=== PATIENT | male | born 1985 | race Caucasian/White ===

== ENCOUNTER 2017-05-14 22:30 | Inpatient (IN) | payer BC ==
--- NOTE | 2017-05-14 23:37 | PDOC ---
History of Present Illness - General Chief Complaint: Pain Stated Complaint: CHEST PAIN Time Seen by Provider: 05/14/17 23:37 History Source: Patient - History of Present Illness Travel History: No Initial Comments: 05/14/17 23:39 Best Contact: Pmhx: N/A Pshx:N/A Allergies: NKDA 32-year-old male presents to the emergency department complaining of right lower quadrant abdominal pains 2 hours after eating take out. Pain is described as 10/10 sharp constant nonradiating discomfort with nausea but no vomiting. Patient denies fever, chills, headaches, dizziness, lightheadedness, neck/back pains, chest pain, shortness of breath, flank pains, urinary symptoms. Pain is exacerbated on touch and there are no alleviating factors. LAST MEAL X17 HOURS LAST DRINK/WATER AT 2200HRS 05/14/2017 Past History - Past Medical History Allergies/Adverse Reactions: Allergies Allergy/AdvReac Type Severity Reaction Status Date / Time No Known Allergies Allergy Verified 05/15/17 09:52 Home Medications: Ambulatory Orders Docusate Sodium [Colace -] 100 mg PO TID #90 capsule 05/15/17 Multivitamin [Multiple Vitamins] 1 each PO DAILY 05/15/17 [place]-3/Dha/Epa/Fish Oil [[place] 3 500 Softgel] 1 each PO DAILY 05/15/17 Oxycodone HCl/Acetaminophen [Percocet 5-325 mg Tablet] 1 - 2 tab PO Q6H #28 tab MDD 4 05/15/17 levoFLOXacin [Levaquin -] 500 mg PO DAILY #10 tablet 05/16/17 metroNIDAZOLE [Flagyl -] 500 mg PO TID #30 tablet 05/16/17 - Suicide/Smoking/Psychosocial Hx Smoking History: Current some day smoker Have you smoked in the past 12 months: Yes Information on smoking cessation initiated: No Hx Alcohol Use: Yes (social) Drug/Substance Use Hx: No Review of Systems - Review of Systems Able to Perform ROS?: Yes Comments:: 05/15/17 01:33 CONSTITUTIONAL: Absent: fever, chills, diaphoresis, generalized weakness, malaise, loss of appetite HEENT: Absent: rhinorrhea, nasal congestion, throat pain, throat swelling, difficulty swallowing, mouth swelling, ear pain, eye pain, visual Changes CARDIOVASCULAR: Absent: chest pain, loss of consciousness, palpitations, irregular heart rate, peripheral edema RESPIRATORY: Absent: cough, shortness of breath, dyspnea with exertion, orthopnea, wheezing, stridor, hemoptysis GASTROINTESTINAL: +RLQ pain Absent: abdominal distension, nausea, vomiting, diarrhea, constipation, melena, hematochezia GENITOURINARY: Absent: dysuria, frequency, urgency, hesitancy, hematuria, flank pain, genital pain MUSCULOSKELETAL: Absent: myalgia, arthralgia, joint swelling SKIN: Absent: rash, itching, pallor HEMATOLOGIC/IMMUNOLOGIC: Absent: easy bleeding, easy bruising, lymphadenopathy, frequent infections ENDOCRINE: Absent: unexplained weight gain, unexplained weight loss, heat intolerance, cold intolerance NEUROLOGIC: Absent: headache, focal weakness or paresthesias, dizziness, unsteady gait, seizure, mental status changes, bladder or bowel incontinence PSYCHIATRIC: Absent: anxiety, depression, suicidal or homicidal ideation, hallucinations. Is the patient limited Italian proficient: No *Physical Exam - Vital Signs Last Vital Signs Temp Pulse Resp BP Pulse Ox 83 18 134/90 100 05/14/17 22:45 05/14/17 22:45 05/14/17 22:45 05/14/17 22:45 - Physical Exam Comments: 05/15/17 01:34 GENERAL: Well developed, well nourished. Awake and alert. No acute distress. HEENT: Normocephalic, atraumatic. PERRLA, EOMI. No conjunctival pallor. Sclera are non- icteric. Moist mucous membranes. Oropharynx is clear. NECK: Supple. Full ROM. No JVD. Carotid pulses 2+ and symmetric, without bruits. No thyromegaly. No lymphadenopathy. CARDIOVASCULAR: Regular rate and rhythm. No murmurs, rubs, or gallops. Distal pulses are 2+ and symmetric. PULMONARY: No evidence of respiratory distress. Lungs clear to auscultation bilaterally. No wheezing, rales or rhonchi. ABDOMINAL: +RLQ pain on palp Soft.Non-distended. No rebound or guarding. No organomegaly. Normoactive bowel sounds. MUSCULOSKELETAL Normal range of motion at all joints. No bony deformities or tenderness. No CVA tenderness. EXTREMITIES: No cyanosis. No clubbing. No edema. No calf tenderness. SKIN: Warm and dry. Normal capillary refill. No rashes. No jaundice. NEUROLOGICAL: Alert, awake, appropriate. Cranial nerves 2-12 intact. No deficits to light touch and temperature in face, upper extremities and lower extremities. No motor deficits in the in face, upper extremities and lower extremities. Normoreflexic in the upper and lower extremities. Normal speech. Toes are down- going bilaterally. Gait is normal without ataxia. PSYCHIATRIC: Cooperative. Good eye contact. Appropriate mood and affect. ED Treatment Course - LABORATORY CBC & Chemistry Diagram: 05/16/17 07:05 05/16/17 07:05 Progress Note - Progress Note Progress Note: Signed out to Dr. Rush for surgical consult *DC/Admit/Observation/Transfer Diagnosis at time of Disposition: Appendicitis - Discharge Dispostion Disposition: HOME Condition at time of disposition: Stable - Prescriptions - Referrals - Patient Instructions - Post Discharge Activity
[2017-05-14] MEDS ORDERED: ONDANSETRON 4 MG/2 ML VIAL IVPUSH ONE (23:38)
[2017-05-14] MEDS ORDERED: morphine SULFATE 4 MG/ML VIAL IVPUSH ONE (23:38)
[2017-05-14] MEDS ORDERED: morphine SULFATE 4 MG/ML VIAL ONE (23:40)
[2017-05-15] MEDS ORDERED: morphine CARPU-JECT 2 MG/1 ML DISP.SYRIN IVPUSH ONE ×3 (00:21→04:33)
[2017-05-15] MEDS ORDERED: MORPHINE SULFATE 10 MG/1 ML *VIAL ONE ×3 (00:25→12:38)
[2017-05-15 00:39] LABS: ALBUMIN 4.9 g/dl (3.4-5.0); ALK PHOS 126 U/L (45-117); ANION GAP 10 (8-16); BILIRUBIN,TOTAL 0.8 mg/dL (0.2-1.0); BLOOD UREA NITROGEN 15 mg/dL (7-18); CALCIUM 9.8 mg/dL (8.5-10.1); CHLORIDE 102 mmol/L (98-107); CO2 29 mmol/L (21-32); CREATININE 1.3 mg/dL (0.7-1.3); GLUCOSE,RANDOM 129 mg/dL (74-106); POTASSIUM 3.4 mmol/L (3.5-5.1); SGOT/AST 33 U/L (15-37); SGPT/ALT 47 U/L (12-78); SODIUM 141 mmol/L (136-145); TOT PROT 8.5 g/dl (6.4-8.2)
[2017-05-15 01:10] LABS: BASO % 0.2 % (0-2.0); EOS % 0.2 % (0-4.5); HEMATOCRIT 46.4 % (35.4-49); HEMOGLOBIN 16.5 GM/dL (11.7-16.9); LYMPH % 6.8 % (8-40); MCH 32.7 pg (25.7-33.7); MCHC 35.5 g/dl (32.0-35.9); NEUT % 87.8 % (42.8-82.8); PLATELET COUNT 278 K/MM3 (134-434); RBC 5.04 M/mm3 (4.00-5.60); RDW 12.6 % (11.9-15.9); WHITE BLOOD COUNT 12.7 K/mm3 (4.0-10.0)
[2017-05-15] MEDS ORDERED: HYDROmorphone HCL CARPU-JECT 1 MG/1 ML DISP.SYRIN IVPUSH ONE (01:51)
[2017-05-15] MEDS ORDERED: CEFTRIAXONE 1,000 MG in DEXTROSE 5%-WATER - 50 ML IVPB ONE (01:53)
[2017-05-15] MEDS ORDERED: METOCLOPRAMIDE HCL INJECTION 10 MG/2 ML VIAL IVPUSH ONE (01:55)
[2017-05-15] MEDS ORDERED: CEFTRIAXONE 1 GM/50 ML BAG ONE (01:59)
[2017-05-15] MEDS ORDERED: METOCLOPRAMIDE HCL INJECTION 10 MG/2 ML VIAL ONE (01:59)
[2017-05-15 04:24] LABS: URINE APPEARANCE CLEAR; URINE BILIRUBIN NEGATIVE (<2.0 mg/dL); URINE BLOOD NEGATIVE (NEGATIVE); URINE COLOR LTYELLOW; URINE GLUCOSE (UA) 1+ (NEGATIVE); URINE KETONE 2+ (NEGATIVE); URINE LEUK ESTERASE NEGATIVE (NEGATIVE); URINE NITRITE NEGATIVE (NEGATIVE); URINE PROTEIN NEGATIVE (NEGATIVE); URINE UROBILINOGEN NEGATIVE mg/dL (0.2-1.0)
[2017-05-15] MEDS ORDERED: morphine SULFATE 4 MG/ML VIAL ONE ×2 (04:36→06:10)
[2017-05-15] MEDS ORDERED: ONDANSETRON 4 MG/2 ML VIAL IVPUSH ONE (05:55)
[2017-05-15] MEDS ORDERED: ONDANSETRON 4 MG/2 ML VIAL ONE (06:04)
[2017-05-15] MEDS ORDERED: morphine CARPU-JECT 4 MG/1 ML DISP.SYRIN IVPUSH ONE (06:08)
[2017-05-15] MEDS: LACTATED RINGERS SOLUTION 1,000 ML IV SCH ×2 (06:56→16:30)
--- NOTE | 2017-05-15 07:12 | PDOC ---
*Physical Exam - Vital Signs Last Vital Signs Temp Pulse Resp BP Pulse Ox 66 18 124/69 98 05/15/17 07:06 05/15/17 07:06 05/15/17 07:06 05/15/17 07:06 - Physical Exam Comments: 05/15/17 07:19 Gen: Sleeping in bed, arousable spontaneously Lungs: CTA b/l Cardiac: RRR no murmurs appreciated Abd: Soft, mild tenderness in LLQ, nondistended, + BS, no rebound, voluntary guarding Ext: No edema, 2+ DP pulses ED Treatment Course - LABORATORY CBC & Chemistry Diagram: 05/14/17 23:50 05/14/17 23:50 - ADDITIONAL ORDERS Additional order review: Laboratory Results 05/15/17 05/14/17 04:30 23:50 Sodium 141 Potassium 3.4 L Chloride 102 Carbon Dioxide 29 Anion Gap 10 BUN 15 Creatinine 1.3 Creat Clearance w eGFR > 60 Random Glucose 129 H Calcium 9.8 Total Bilirubin 0.8 AST 33 ALT 47 Alkaline Phosphatase 126 H Total Protein 8.5 H Albumin 4.9 Urine Color Ltyellow Urine Appearance Clear Urine pH 7.0 Ur Specific [place] > 1.060 H Urine Protein Negative Urine Glucose (UA) 1+ H Urine Ketones 2+ H Urine Blood Negative Urine Nitrite Negative Urine Bilirubin Negative Urine Urobilinogen Negative Ur Leukocyte Esterase Negative 05/14/17 23:50 RBC 5.04 MCV 92.0 MCHC 35.5 RDW 12.6 MPV 8.0 Neutrophils % 87.8 H Lymphocytes % 6.8 L Monocytes % 5.0 Eosinophils % 0.2 Basophils % 0.2 - Medications Given in the ED: ED Medications Discontinued Medications Generic Name Dose Route Start Last Admin Trade Name Lizbeth PRN Reason Stop Dose Admin Hydromorphone HCl 1 mg 05/15/17 01:51 05/15/17 02:13 Dilaudid Injection - IVPUSH 05/15/17 01:52 Not Given ONCE ONE Ceftriaxone Sodium 1,000 mg/ 50 mls @ 100 mls/hr 05/15/17 01:53 05/15/17 02: 11 Dextrose IVPB 05/15/17 02:22 100 mls/hr ONCE ONE Administration Metronidazole 500 mg in 100 mls @ 100 mls/hr 05/15/17 01:54 05/15/17 02:11 Flagyl 500mg Premixed Ivpb - IVPB 05/15/17 02:53 100 mls/hr ONCE ONE Administration Metoclopramide HCl 10 mg 05/15/17 01:55 05/15/17 02:12 Reglan Injection - IVPUSH 05/15/17 01:56 10 mg ONCE ONE Administration Morphine Sulfate 2 mg 05/14/17 23:38 05/14/17 23:55 Morphine Sulfate IVPUSH 05/14/17 23:39 2 mg ONCE ONE Administration Morphine Sulfate 2 mg 05/15/17 00:21 05/15/17 00:27 Morphine Injection - IVPUSH 05/15/17 00:22 2 mg ONCE ONE Administration Morphine Sulfate 2 mg 05/15/17 01:55 05/15/17 02:11 Morphine Injection - IVPUSH 05/15/17 01:56 2 mg ONCE ONE Administration Morphine Sulfate 2 mg 05/15/17 04:33 05/15/17 04:39 Morphine Injection - IVPUSH 05/15/17 04:34 2 mg ONCE ONE Administration Morphine Sulfate 4 mg 05/15/17 06:08 05/15/17 06:19 Morphine Injection - IVPUSH 05/15/17 06:09 4 mg ONCE ONE Administration Ondansetron HCl 4 mg 05/14/17 23:38 05/14/17 23:55 Zofran Injection IVPUSH 05/14/17 23:39 4 mg ONCE ONE Administration Ondansetron HCl 4 mg 05/15/17 05:55 05/15/17 06:09 Zofran Injection IVPUSH 05/15/17 05:56 4 mg ONCE ONE Administration Progress Note - Progress Note Progress Note: 32yo M with no significant medical history who came in with abdominal pain rated 10/10 found to have early appendicitis confirmed by CT. Awaiting call back from [facility] and pt already admitted. Medical Decision Making - Medical Decision Making 05/15/17 07:49 Dr. Clayton at bedside. Admitting team at bedside. Pt continues to be pain controlled. *DC/Admit/Observation/Transfer Diagnosis at time of Disposition: Appendicitis - Referrals - Patient Instructions - Post Discharge Activity
--- NOTE | 2017-05-15 07:22 | PDOC ---
*Physical Exam - Vital Signs Last Vital Signs Temp Pulse Resp BP Pulse Ox 66 18 124/69 98 05/15/17 07:06 05/15/17 07:06 05/15/17 07:06 05/15/17 07:06 ED Treatment Course - LABORATORY CBC & Chemistry Diagram: 05/14/17 23:50 05/14/17 23:50 - ADDITIONAL ORDERS Additional order review: Laboratory Results 05/15/17 05/14/17 04:30 23:50 Sodium 141 Potassium 3.4 L Chloride 102 Carbon Dioxide 29 Anion Gap 10 BUN 15 Creatinine 1.3 Creat Clearance w eGFR > 60 Random Glucose 129 H Calcium 9.8 Total Bilirubin 0.8 AST 33 ALT 47 Alkaline Phosphatase 126 H Total Protein 8.5 H Albumin 4.9 Urine Color Ltyellow Urine Appearance Clear Urine pH 7.0 Ur Specific [place] > 1.060 H Urine Protein Negative Urine Glucose (UA) 1+ H Urine Ketones 2+ H Urine Blood Negative Urine Nitrite Negative Urine Bilirubin Negative Urine Urobilinogen Negative Ur Leukocyte Esterase Negative 05/14/17 23:50 RBC 5.04 MCV 92.0 MCHC 35.5 RDW 12.6 MPV 8.0 Neutrophils % 87.8 H Lymphocytes % 6.8 L Monocytes % 5.0 Eosinophils % 0.2 Basophils % 0.2 - Medications Given in the ED: ED Medications Discontinued Medications Generic Name Dose Route Start Last Admin Trade Name Joseq PRN Reason Stop Dose Admin Hydromorphone HCl 1 mg 05/15/17 01:51 05/15/17 02:13 Dilaudid Injection - IVPUSH 05/15/17 01:52 Not Given ONCE ONE Ceftriaxone Sodium 1,000 mg/ 50 mls @ 100 mls/hr 05/15/17 01:53 05/15/17 02: 11 Dextrose IVPB 05/15/17 02:22 100 mls/hr ONCE ONE Administration Metronidazole 500 mg in 100 mls @ 100 mls/hr 05/15/17 01:54 05/15/17 02:11 Flagyl 500mg Premixed Ivpb - IVPB 05/15/17 02:53 100 mls/hr ONCE ONE Administration Metoclopramide HCl 10 mg 05/15/17 01:55 05/15/17 02:12 Reglan Injection - IVPUSH 05/15/17 01:56 10 mg ONCE ONE Administration Morphine Sulfate 2 mg 05/14/17 23:38 05/14/17 23:55 Morphine Sulfate IVPUSH 05/14/17 23:39 2 mg ONCE ONE Administration Morphine Sulfate 2 mg 05/15/17 00:21 05/15/17 00:27 Morphine Injection - IVPUSH 05/15/17 00:22 2 mg ONCE ONE Administration Morphine Sulfate 2 mg 05/15/17 01:55 05/15/17 02:11 Morphine Injection - IVPUSH 05/15/17 01:56 2 mg ONCE ONE Administration Morphine Sulfate 2 mg 05/15/17 04:33 05/15/17 04:39 Morphine Injection - IVPUSH 05/15/17 04:34 2 mg ONCE ONE Administration Morphine Sulfate 4 mg 05/15/17 06:08 05/15/17 06:19 Morphine Injection - IVPUSH 05/15/17 06:09 4 mg ONCE ONE Administration Ondansetron HCl 4 mg 05/14/17 23:38 05/14/17 23:55 Zofran Injection IVPUSH 05/14/17 23:39 4 mg ONCE ONE Administration Ondansetron HCl 4 mg 05/15/17 05:55 05/15/17 06:09 Zofran Injection IVPUSH 05/15/17 05:56 4 mg ONCE ONE Administration Medical Decision Making - Medical Decision Making 05/15/17 07:[address] Clayton, surgeon around 6:30am who will review chart and call back. Signed out to Dr. Grace *DC/Admit/Observation/Transfer Diagnosis at time of Disposition: Appendicitis - Referrals - Patient Instructions - Post Discharge Activity
--- NOTE | 2017-05-15 07:56 | HP ---
<Michelle Galarza - Last Filed: 05/16/17 10:06> CHIEF COMPLAINT: " Right lower abdominal pain" PCP: Dr. Larry Ramirez HISTORY OF PRESENT ILLNESS: Patient is a 32 year old male presented to the ED with the chief complaint of Right lower abdominal pain x 1 day. As per the patient, he was apparently well until 2 pm yesterday then he suddenly developed RLQ abdominal pain, progressively getting worse to 10/10, non radiating, sharp in quality, associated with chills, nausea and several episodes of vomiting. Vomitus mainly contained food particles, non bloody, non projectile. Denies fever, rigors chest pain, sob, cough, palpitation, headache, LOC, trauma. Bladder/Bowel habit normal. Sleep/Appetite normal prior to illness. Was seen by Dr. Clayton in the ED, plan is to take the patient in the OR today ( time unknown) for Lap Appendectomy. ER course was notable for: (1) Afebrile, hemodynamically stable, leukocytosis of 12.7 (2) CT abdomen/Pelvis (3) IV Ceftriaxone, IV Metron, Reglan, Zofran, Morphine 12 mg total. 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 Family History: Non contributory Allergies No Known Allergies Allergy (Verified 05/14/17 23:52) HOME MEDICATIONS: Home Medications Medication Instructions Recorded NK [No Known Home Medication] 05/15/17 REVIEW OF SYSTEMS CONSTITUTIONAL: Present: chills Absent: fever, diaphoresis, generalized weakness, malaise, loss of appetite, weight change HEENT: Absent: rhinorrhea, nasal congestion, throat pain, throat swelling, difficulty swallowing, mouth swelling, ear pain, eye pain, visual changes CARDIOVASCULAR: Absent: chest pain, syncope, palpitations, irregular heart rate, lightheadedness , peripheral edema RESPIRATORY: Absent: cough, shortness of breath, dyspnea with exertion, orthopnea, wheezing, stridor, hemoptysis GASTROINTESTINAL: Present: nausea, vomiting, abdominal pain Absent: abdominal distension, diarrhea, constipation, melena, hematochezia GENITOURINARY: Absent: dysuria, frequency, urgency, hesitancy, hematuria, flank pain, genital pain MUSCULOSKELETAL: Absent: myalgia, arthralgia, joint swelling, back pain, neck pain SKIN: Absent: rash, itching, pallor HEMATOLOGIC/IMMUNOLOGIC: Absent: easy bleeding, easy bruising, lymphadenopathy, frequent infections ENDOCRINE: Absent: unexplained weight gain, unexplained weight loss, heat intolerance, cold intolerance NEUROLOGIC: Absent: headache, focal weakness or paresthesias, dizziness, unsteady gait, seizure, mental status changes, bladder or bowel incontinence PSYCHIATRIC: Absent: anxiety, depression, suicidal or homicidal ideation, hallucinations. PHYSICAL EXAMINATION Vital Signs - 24 hr 05/14/17 05/15/17 05/15/17 22:45 06:28 07:06 Pulse Rate 83 Pulse Rate [ 79 66 Left] Respiratory 18 18 18 Rate Blood Pressure 134/90 Blood Pressure 128/88 124/69 [Right Arm] O2 Sat by Pulse 100 100 98 Oximetry (%) GENERAL: Young male, complaining of right abdominal pain, Awake, alert, and fully oriented, in no acute distress. HEAD: Normal with no signs of trauma. EYES: EOM intact, no pallor or icterus. EARS, NOSE, THROAT: Ears normal, Dry mucous membranes. NECK: Supple. LUNGS: B/L breath sounds equal, clear to auscultation bilaterally. No wheezes, and no crackles. No accessory muscle use. HEART: Regular rate and rhythm, normal S1 and S2 without murmur. ABDOMEN: Soft, Right lower quadrant tenderness +, Rebound tenderness +, Rovsing sign +, Obturator sign + Psoas sign +, not distended, normoactive bowel sounds. MUSCULOSKELETAL: Normal range of motion at all joints. No bony deformities or tenderness. No CVA tenderness. UPPER EXTREMITIES: 2+ pulses, warm, well-perfused. No cyanosis. No clubbing. No peripheral edema. LOWER EXTREMITIES: 2+ pulses, warm, well-perfused. No calf tenderness. No peripheral edema. NEUROLOGICAL: No facial droop. Normal speech. Gait not observed. PSYCHIATRIC: Cooperative. Good eye contact. Appropriate mood and affect. SKIN: Warm, dry, normal turgor, no rashes or lesions noted, normal capillary refill. Laboratory Results - last 24 hr 05/14/17 05/14/17 05/15/17 23:50 23:50 04:30 WBC 12.7 H RBC 5.04 Hgb 16.5 Hct 46.4 MCV 92.0 MCH 32.7 MCHC 35.5 RDW 12.6 Plt Count 278 MPV 8.0 Neutrophils % 87.8 H Lymphocytes % 6.8 L Monocytes % 5.0 Eosinophils % 0.2 Basophils % 0.2 Sodium 141 Potassium 3.4 L Chloride 102 Carbon Dioxide 29 Anion Gap 10 BUN 15 Creatinine 1.3 Creat Clearance w eGFR > 60 Random Glucose 129 H Calcium 9.8 Total Bilirubin 0.8 AST 33 ALT 47 Alkaline Phosphatase 126 H Total Protein 8.5 H Albumin 4.9 Urine Color Ltyellow Urine Appearance Clear Urine pH 7.0 Ur Specific [place] > 1.060 H Urine Protein Negative Urine Glucose (UA) 1+ H Urine Ketones 2+ H Urine Blood Negative Urine Nitrite Negative Urine Bilirubin Negative Urine Urobilinogen Negative Ur Leukocyte Esterase Negative Abdominal/Pelvis CT with contrast: Findings strongly suspicious for acute appendicitis without abscess formation. ASSESSMENT/PLAN: Patient is a 32 year old male presented to the ED with the chief complaint of Right lower abdominal pain x 1 day was found to have Acute appendicitis on CT abd/Pelvis. # Acute Appendicitis c/o RLQ abdominal pain, Nausea, vomiting, Rebound tenderness +, Rovsing sign +, obturator sign + Khoury score 8 CT abd/pelvis suggestive of acute appendicitis Dr. Clayton saw the pt in the ED, plan for a lap appendectomy today IV LR @ 100 mls/hr IV Zosyn 3.375mg one time dose given. ID consult requested IV Morphine 2mg Q4H PRN for pain control IV Reglan 10mg Q8H PRN for nausea/vomiting NPO Type and screen, coags pending. # Polysubstance abuse urine tox positive for Cocaine, Marijuana, Opiates (Urine sample was taken after he received Morphine in the ED) Polysubstance cessation counseling # Glycousria RBS-126, Glycosuria A1c pending # FEN IV LR @ 100 mls/hr Electrolytes WNL NPO # Prophylaxis For DVT: On SCD's For GI: Not indicated # Code Status: Full Code Illness, Investigation and Plan of care explained to the patient. He verbalized understanding. Case to be discussed with Dr. Ewing. Visit type - Emergency Visit Emergency Visit: Yes ED Registration Date: 05/15/17 Care time: The patient presented to the Emergency Department on the above date and was hospitalized for further evaluation of their emergent condition. - New Patient This patient is new to me today: Yes Date on this admission: 05/15/17 - Critical Care Critical Care patient: No Hospitalist Screening - Colonoscopy Questionnaire Colonoscopy Questionnaire: Colonoscopy Questionnaire - Patient: 50 - 75 years old and never had a screening colonoscopy: No - Relative: 1 with colon or rectal CA, or polyps at age 60 or younger: Unknown Colon or rectal CA diagnosed at age 45 or younger: Unknown Multiple relatives with colon or rectal CA: Unknown <Carrie Ewing - Last Filed: 05/17/17 16:51> Problem List - Problem (1) Appendicitis Code(s): K37 - UNSPECIFIED APPENDICITIS Qualifiers: Appendicitis type: acute appendicitis Hospitalist Screening - Colonoscopy Questionnaire Colonoscopy Questionnaire: Colonoscopy Questionnaire - Patient: 50 - 75 years old and never had a screening colonoscopy: No History of colon or rectal polyps, or CA: No History of IBD, Crohn's disease or UC: No History of abdominal radiation therapy as a child: No - Relative: 1 with colon or rectal CA, or polyps at age 60 or younger: Unknown Colon or rectal CA diagnosed at age 45 or younger: Unknown Multiple relatives with colon or rectal CA: Unknown - Outcome: Screening Result: Negative Screen
[2017-05-15] MEDS ORDERED: METOCLOPRAMIDE HCL INJECTION 10 MG/2 ML VIAL IVPUSH PRN (08:29)
[2017-05-15] MEDS ORDERED: PIPERACIL/TAZOB 3.375 GM 3.375 GM/50 ML PREMIX IVPB ONE (08:30)
[2017-05-15] MEDS ORDERED: morphine SULFATE 4 MG/ML VIAL IVPUSH PRN ×2 (08:30→19:20)
--- NOTE | 2017-05-15 08:47 | CONSULT ---
Consult Consult Specialty:: Surgery Reason for Consultation:: Abdominal pain - History of Present Illness Chief Complaint: Abdominal pain History of Present Illness: 32 male with 1 day of RLQ abdominal pain 1st episode Mild nausea No vomiting - History Source History Provided By: Patient Limitations to Obtaining History: No Limitations - Alcohol/Substance Use Hx Alcohol Use: Yes (social) - Smoking History Smoking history: Current some day smoker Have you smoked in the past 12 months: Yes Home Medications - Allergies Allergies/Adverse Reactions: Allergies Allergy/AdvReac Type Severity Reaction Status Date / Time No Known Allergies Allergy Verified 05/14/17 23:52 - Home Medications Home Medications: Ambulatory Orders NK [No Known Home Medication] 05/15/17 Family Disease History - Family Disease History Family History: Denies Review of Systems - Review of Systems Constitutional: reports: Lethargy HENT: reports: No Symptoms Cardiovascular: denies: Chest Pain Respiratory: denies: Cough Gastrointestinal: reports: Abdominal Pain, Nausea Neurological: denies: Change in LOC Pain Intensity: 5 Physical Exam Vital Signs: Vital Signs Temperature Pulse Rate 66 05/15/17 07:06 Respiratory Rate 18 05/15/17 07:06 Blood Pressure 124/69 05/15/17 07:06 O2 Sat by Pulse Oximetry (%) 98 05/15/17 07:06 HENT: Yes: WNL Neck: Yes: Supple Cardiovascular: Yes: Regular Rate and Rhythm Respiratory: Yes: Regular Gastrointestinal: Yes: Soft, Tenderness (RLQ), Tenderness, Rebound (Local) Neurological: Yes: Alert, Oriented Labs: CBC, BMP 05/14/17 23:50 05/14/17 23:50 Problem List - Problems (1) Appendicitis Code(s): K37 - UNSPECIFIED APPENDICITIS Qualifiers: Appendicitis type: acute appendicitis Acute appendicitis type: with localized peritonitis Qualified Code(s): K35.3 - Acute appendicitis with localized peritonitis Assessment/Plan Acute appendicitis NPO IV fluids Antibiotics For laparoscopic possible open appendectomy Understands risks and benefits
[2017-05-15 09:33] LABS: HEMOGLOBIN 15.5 GM/dL (11.7-16.9); MCH 32.4 pg (25.7-33.7); MCHC 35.3 g/dl (32.0-35.9); MEAN CELL VOLUME 91.8 fl (80-96); MEAN PLT VOLUME 7.8 fl (7.5-11.1); PLATELET COUNT 232 K/MM3 (134-434); RDW 12.7 % (11.9-15.9); WHITE BLOOD COUNT 15.1 K/mm3 (4.0-10.0)
[2017-05-15 09:42] VITALS: BMI 27.2
[2017-05-15 09:53] LABS: INR 1.04 (0.82-1.09); PROTHROMBIN TIME (PATIENT) 11.8 SEC (9.98-11.88)
[2017-05-15 09:56] LABS: ACTIVATED PTT 30.4 SECONDS (26.9-34.4)
[2017-05-15 10:11] LABS: ANION GAP 12 (8-16); BLOOD UREA NITROGEN 10 mg/dL (7-18); CALCIUM 9.3 mg/dL (8.5-10.1); CHLORIDE 99 mmol/L (98-107); CO2 29 mmol/L (21-32); CREATININE 1.1 mg/dL (0.7-1.3); GLUCOSE,RANDOM 113 mg/dL (74-106); POTASSIUM 3.4 mmol/L (3.5-5.1); SODIUM 140 mmol/L (136-145)
[2017-05-15 11:06] LABS: METHADONE, UR NEGATIVE ng/ml (CUTOFF=300); PHENCYCLIDINE,URINE NEGATIVE ng/ml (CUTOFF=25); URINE AMPHETAMINES NEGATIVE ng/ml (CUTOFF=500); URINE BARBITURATES NEGATIVE ng/ml (CUTOFF=200); URINE BENZODIAZEPINES NEGATIVE ng/ml (CUTOFF=200)
[2017-05-15 11:17] LABS: COCAINE, UR POSITIVE ng/ml (CUTOFF=300)
[2017-05-15 11:18] LABS: OPIATES, URI POSITIVE ng/ml (CUTOFF=300)
--- NOTE | 2017-05-15 13:35 | EKG ---
Test Reason : Blood Pressure : / mmHG Vent. Rate : 091 BPM Atrial Rate : 091 BPM P-R Int : 182 ms QRS Dur : 110 ms QT Int : 350 ms P-R-T Axes : 063 105 043 degrees QTc Int : 430 ms NORMAL SINUS RHYTHM POSSIBLE LEFT ATRIAL ENLARGEMENT RIGHTWARD AXIS INCOMPLETE RIGHT BUNDLE BRANCH BLOCK BORDERLINE ECG NO PREVIOUS ECGS AVAILABLE Confirmed by MD Llamas Daniel ([id number]) on 05/15/2017 1:34:32 PM Referred By: Confirmed By:Dylan Llamas MD
[2017-05-15] MEDS ORDERED: ACETAMINOPHEN INJECTION 100 ML IVPB ONE (14:35)
[2017-05-15] MEDS ORDERED: IBUPROFEN 800 MG/8 ML IJ IVPB ONE ×2 (14:46→16:30)
[2017-05-15] MEDS ORDERED: PIPERACILLIN/TAZOB 4.5 GM 4.5 GM/100 ML BAG IVPB SCH (15:00)
[2017-05-15] MEDS ORDERED: ACETAMINOPHEN 1000 MG/100 ML VIAL (NON FORMULARY) IVPB ONE ×2 (15:15→15:36)
--- NOTE | 2017-05-15 15:27 | PN ---
Progress Note (short form) - Note Progress Note: ID consult dictated imp/reccd 32 daniela old man seen awaiting lap appy he came to ed last night with RLQ pain and vomiting ct scan c/w appendicitis continue zosyn lap appy today with Dr Clayton Problem List - Problems (1) Appendicitis Code(s): K37 - UNSPECIFIED APPENDICITIS Qualifiers: Appendicitis type: acute appendicitis Acute appendicitis type: with localized peritonitis Qualified Code(s): K35.3 - Acute appendicitis with localized peritonitis
--- NOTE | 2017-05-15 15:35 | PN ---
Teaching Attending Note Name of Resident: Michelle Galarza ATTENDING PHYSICIAN STATEMENT I saw and evaluated the patient. I reviewed the resident's note and discussed the case with the resident. I agree with the resident's findings and plan as documented with exceptions below. SUBJECTIVE: 32yom with PMHx of polysubstance abuse (Cocaine/marihuana), Hypertriglyceridemia admitted with RLQ abdominal pain found with acute appendicitis, planned for OR. patient seen karl-operatively, pain better currently. No other complaints. OBJECTIVE: Vital Signs Period Temp Pulse Resp BP Sys/Ng Pulse Ox Last 24 Hr 98.3 F-99.2 F 66-98 18-18 124-138/61-90 98-100 Intake & Output 05/12/17 05/13/17 05/14/17 05/15/17 23:59 23:59 23:59 23:59 Intake Total 550 Balance 550 Weight 185 lb 190 lb GENERAL: Awake, alert, and fully oriented, in no acute distress. HEAD: Normal with no signs of trauma. EYES: Pupils equal, round and reactive to light, extraocular movements intact, sclera anicteric, conjunctiva clear. No lid lag. EARS, NOSE, THROAT: Ears normal, nares patent, oropharynx clear without exudates. Mildly dry mucous membrane NECK: soft, supple, no JVD LUNGS: Breath sounds equal, clear to auscultation bilaterally. No wheezes, and no crackles. No accessory muscle use. HEART: S1S2 regular ABDOMEN: Soft, tenderness with guarding RLQ, positive rebound tenderness, positive Rovsing's sign, nD, positive bowel sounds. MUSCULOSKELETAL: Normal range of motion at all joints. No bony deformities or tenderness. No CVA tenderness. UPPER EXTREMITIES: 2+ pulses, warm, well-perfused. No cyanosis. No clubbing. No peripheral edema. LOWER EXTREMITIES: 2+ pulses, warm, well-perfused. No calf tenderness. No peripheral edema. NEUROLOGICAL: Cranial nerves II-XII intact. Normal speech. Normal gait. PSYCHIATRIC: Cooperative. Good eye contact. Appropriate mood and affect. SKIN: Warm, dry, decreased skin turgor, no rashes or lesions noted, normal capillary refill. ASSESSMENT AND PLAN: 32 yom with polysubstance abuse, hypertriglyceridemia here with Acute appendicitis -Acute appendicitis -Polysubstance abuse -Glucosuria Plan: for Lap Appy today, will follow up. DHARA Castro consult. NPO, IVF and pain control for now. drug screen noted (sent after receiving narcotics in ED, patient denies narcotic use). Monitor and cessation counseling and resources on discharge if interested. Check A1c, monitor blood sugars post operatively. GIPPX with protonix DVTPPx per surgery Dispo planning pending surgery and clinical course, in 1-2 days if uneventful. Plan discussed with patient in detail, all questions answered. total admit time spent 55 minn.
[2017-05-15] MEDS ORDERED: BUPIVACAINE HCL/PF 0.5% (5MG/ML) 10 ML VIAL ONE (15:58)
[2017-05-15] MEDS: PIPERACILLIN/TAZOB 4.5 GM 4.5 GM in DEXTROSE 5%-WATER 100 ML IVPB SCH ×2 (16:16→22:18)
[2017-05-15] MEDS ORDERED: PIPERACILLIN/TAZOB 4.5 GM 4.5 GM in DEXTROSE 5%-WATER 100 ML IVPB SCH (18:00)
[2017-05-15] MEDS ORDERED: fentaNYL CITRATE 250 MCG/5 ML VIAL ONE (18:08)
[2017-05-15] MEDS ORDERED: ROCURONIUM BROMIDE 50 MG/5 ML VIAL ONE (18:09)
[2017-05-15] MEDS ORDERED: PROPOFOL 20 ML ONE ×2 (18:09)
[2017-05-15] MEDS ORDERED: DEXAMETHASONE SOD PHOSPHATE 4 MG/1 ML VIAL ONE (18:37)
[2017-05-15] MEDS ORDERED: BUPIVACAINE HCL/PF 0.5% (5MG/ML) 10 ML VIAL IJ ONE ×2 (18:54→19:07)
[2017-05-15] MEDS ORDERED: GLYCOPYRROLATE 0.2 MG/1 ML VIAL ONE (19:01)
[2017-05-15] MEDS ORDERED: NEOSTIGMINE METHYLSULFATE 0.5 MG/ML - 10 ML MDV ONE (19:01)
[2017-05-15] MEDS ORDERED: ONDANSETRON 4 MG/2 ML VIAL IVPUSH PRN (19:04)
[2017-05-15] MEDS ORDERED: oxyCODONE HCL 5 MG TABLET PO PRN (19:04)
[2017-05-15] MEDS ORDERED: LACTATED RINGERS SOLUTION 1,000 ML IV SCH (19:15)
--- NOTE | 2017-05-15 19:19 | OP ---
Operative Note - Note: Operative Date: 05/15/17 Pre-Operative Diagnosis: Acute appendicitis Operation: Laparoscopic appendectomy Post-Operative Diagnosis: Other (Acute appendicitis with local perforation) Surgeon: Avery Clayton Anesthesia: General Specimens Removed: Appendix Estimated Blood Loss (mls): 5 Operative Report Dictated: Yes
--- NOTE | 2017-05-15 21:56 | CONS ---
DATE OF CONSULTATION: 05/15/2017 REQUESTING PHYSICIAN: Hospitalist Service This is a 32-year-old man, otherwise healthy. Yesterday, he developed some right lower quadrant pain and vomiting. His pain became severe, became 10/10. He came to the emergency room. He was seen and he had a CT scan that was notable for appendicitis. He was seen by Dr. Clayton and the plan was to take the patient to the OR. I am asked to see him for IV antibiotics. He has had no diarrhea and he was well prior to this. He has no history of any recent travel. His last trip was a month ago to the [facility]. PAST MEDICAL HISTORY: Notable for hypertriglyceridemia and polysubstance use. He socially uses marijuana and cocaine. He drinks alcohol on the weekends and he smokes cigarettes socially. FAMILY HISTORY: Noncontributory. SOCIAL HISTORY: He works at [employer]. ALLERGIES: No known drug allergies. MEDICATIONS: He takes no medicines regularly. REVIEW OF SYSTEMS: He notes that he has had some chills, presently gone. I saw him while he was waiting for surgery. He reports his abdominal pain is improved. His vomiting has stopped. PHYSICAL EXAMINATION: General: He is awake and alert. Vital Signs: Temperature is 99.1, pulse is 115, blood pressure 128/53, respiratory rate is 20. HEENT: Normocephalic. Eyes are anicteric. Neck: Supple. Lungs: Clear to auscultation. Heart: Regular rate and rhythm. Abdomen: Soft. He has right lower quadrant pain on palpation. Extremities: Without edema. LABORTORY: Labs are notable for a white count of 15, hemoglobin 15.5, platelets of 232. INR is 1. BUN is 10, creatinine is 1.1. His alkaline phosphatase is 126. Total protein of 8.5. Urinalysis has 2+ ketones, 1+ glucose. Toxicology is notable for opiates, cocaine, and marijuana. No cultures have been ordered. IN SUMMARY: This is a young man admitted with appendicitis who is scheduled for the operating room. Will continue Zosyn for now with planned appendectomy for today. Given the fact that he has fevers, we will obtain some blood cultures as well. DIEGO GUARDADO M.D. [id number]
[2017-05-15] MEDS: SODIUM CHLORIDE 1,000 ML IV SCH (23:40)
[2017-05-15] MEDS: HEPARIN NA (PORCINE) 5,000 UNITS/ML 1ML VIAL SQ SCH (23:45)
--- NOTE | 2017-05-16 00:36 | SPEC ---
DATE OF OPERATION: 05/15/2017 SURGEON: Patricia Clayton M.D. PREOPERATIVE DIAGNOSIS: Acute appendicitis. POSTOPERATIVE DIAGNOSIS: Acute appendicitis with local perforation. PROCEDURE: Laparoscopic appendectomy. SPECIMEN: Appendix. ESTIMATED BLOOD LOSS: 5 mL. DRAINS: None. ANESTHESIA: GET REASON FOR PROCEDURE: This is a 32-year-old gentleman presented to the emergency room with abdominal pain x1 day on CT scan, it was noted he had evidence of acute appendicitis. Because of this, he was consented for a laparoscopic, possible open appendectomy. RISKS AND BENEFITS: The risks and benefits were explained for a laparoscopic, possible open appendectomy. These included bleeding, infection, hernia, ND, DVT, PE, injury to surrounding structures including the liver, colon, bowel, bladder, ureter, vessel injury, nerve injury, abscess formation, staple line leak, staple line dehiscence as some of the possible complications. The patient understood and signed informed consent. DESCRIPTION OF PROCEDURE: The patient was placed supine on the operating room table. The patient underwent general endotracheal intubation. A Ellis catheter was inserted by the nursing staff. The abdomen was prepped and draped in the usual sterile fashion. A timeout was performed. A periumbilical incision was made and a 5-mm optical trocar was inserted under direct visualization with the laparoscope. Pneumoperitoneum was then established. Subsequently, a 5-mm trocar was placed in the suprapubic area and a 12-mm trocar placed in the left lower quadrant. The patient was placed in Trendelenburg right side up position. After meticulous dissection, the appendix was identified. The appendix was freed from its surrounding structures and the appendix was retracted to the anterior abdominal wall. The base of the appendix was identified. A window was created within the mesentery near the base of the appendix. The appendix at its base was stapled using a laparoscopic Endo-MARY stapler with a white load. The mesoappendix was then transected using a laparoscopic Endo-MARY stapler with a white load. The appendix was placed in an EndoCatch bag. Inspection of both staple lines was identified. The staple line at the base of the appendix was noted to be fully intact. Hemostasis was noted at the staple line of the mesoappendix. Copious irrigation and suction was performed. The appendix was removed from the abdominal cavity and sent off the operative field as specimen. The patient was then placed in left side up position. The 12-mm trocar was removed. The fascia at this site was closed using a 0 Vicryl suture with a Irwin-Marco device. The patient was then placed supine. Pneumoperitoneum was desufflated and all further trocars were removed. All incision sites were irrigated and Marcaine was injected at all incision sites. The fascial suture was secured. All incision sites were closed using 4-0 Biosyn. Sterile dressings were applied. The patient tolerated the procedure well. The Ellis catheter was removed and the patient was transferred to the recovery room in stable condition. Of note, the appendix was noted to be ischemic with a small amount of local perforation. Irrigation suction was performed until clear. The patient tolerated the procedure well and transferred to the recovery room in stable condition. PATRICIA CLAYTON M.D. [id number]
[2017-05-16] MEDS: PIPERACILLIN/TAZOB 4.5 GM 4.5 GM in DEXTROSE 5%-WATER 100 ML IVPB SCH ×3 (02:05→17:35)
[2017-05-16] MEDS ORDERED: PIPERACILLIN/TAZOBACTAM 4.5 GM VIAL IVPB ONE ×3 (02:38→17:15)
[2017-05-16] MEDS ORDERED: DEXTROSE 5%-WATER 100 ML IVPB ONE ×3 (02:38→17:16)
--- NOTE | 2017-05-16 06:05 | PN ---
Physical Exam: SUBJECTIVE: Patient seen and examined by me this AM - No overnight events; Complaining of RLQ/LLQ ab pain; No flatus/BM noted; No f/ c/n/v/d, cp, sob, back pain, LE edema; Ice chips only; Tmax of 100 overnight OBJECTIVE: Vital Signs Intake & Output 05/13/17 05/14/17 05/15/17 05/16/17 23:59 23:59 23:59 23:59 Intake Total 3150 1550 Output Total 805 Balance 2345 1550 Weight 83.915 kg 86.183 kg Period Temp Pulse Resp BP Sys/Ng Pulse Ox Last 24 Hr 98.0 F-100.0 F 66-140 12-28 103-149/53-88 92-100 GENERAL: Young man, NAD, A&Ox3 HEAD: Normal with no signs of trauma. EYES: PERRL, extraocular movements intact, sclera anicteric, conjunctiva clear. No ptosis. ENT: Dry oropharynx. Ears normal, nares patent, oropharynx clear without exudates NECK: Trachea midline, full range of motion, supple. LUNGS: Breath sounds equal, clear to auscultation bilaterally, no wheezes, no crackles, no accessory muscle use. HEART: Regular rate and rhythm, S1, S2 without murmur, rub or gallop. ABDOMEN: TTP in RLQ/LLQ. Incisions c/d/i. Increased tone, nondistended, normoactive bowel sounds, mild voluntary guarding, no rebound, no hepatosplenomegaly, no masses. EXTREMITIES: 2+ pulses, warm, well-perfused, no edema. NEUROLOGICAL: Cranial nerves II through XII grossly intact. Normal speech, gait not observed. PSYCH: Normal mood, normal affect. SKIN: Warm, dry, normal turgor, no rashes or lesions noted Laboratory Results - last 24 hr CBC, BMP 05/15/17 08:45 05/15/17 08:45 05/15/17 05/15/17 05/15/17 08:45 08:45 08:45 WBC RBC Hgb Hct MCV MCH MCHC RDW Plt Count MPV PT with INR 11.80 INR 1.04 PTT (Actin FS) 30.4 Sodium Potassium Chloride Carbon Dioxide Anion Gap BUN Creatinine POC Glucometer Random Glucose Hemoglobin A1c % Calcium Opiates Screen Positive Methadone Screen Negative Barbiturate Screen Negative Phencyclidine Screen Negative Ur Amphetamines Screen Negative MDMA (Ecstasy) Screen Negative Benzodiazepines Screen Negative Cocaine Screen Positive U Marijuana (THC) Screen Positive Blood Type O POSITIVE Antibody Screen Negative 05/15/17 05/15/17 05/15/17 08:45 08:45 08:45 WBC 15.1 H RBC 4.80 Hgb 15.5 Hct 44.0 MCV 91.8 MCH 32.4 MCHC 35.3 RDW 12.7 Plt Count 232 MPV 7.8 PT with INR INR PTT (Actin FS) Sodium 140 Potassium 3.4 L Chloride 99 Carbon Dioxide 29 Anion Gap 12 BUN 10 D Creatinine 1.1 POC Glucometer Random Glucose 113 H Hemoglobin A1c % 5.1 Calcium 9.3 Opiates Screen Methadone Screen Barbiturate Screen Phencyclidine Screen Ur Amphetamines Screen MDMA (Ecstasy) Screen Benzodiazepines Screen Cocaine Screen U Marijuana (THC) Screen Blood Type Antibody Screen 05/15/17 05/16/17 12:10 03:56 WBC RBC Hgb Hct MCV MCH MCHC RDW Plt Count MPV PT with INR INR PTT (Actin FS) Sodium Potassium Chloride Carbon Dioxide Anion Gap BUN Creatinine POC Glucometer 155 Random Glucose Hemoglobin A1c % Calcium Opiates Screen Methadone Screen Barbiturate Screen Phencyclidine Screen Ur Amphetamines Screen MDMA (Ecstasy) Screen Benzodiazepines Screen Cocaine Screen U Marijuana (THC) Screen Blood Type O POSITIVE Antibody Screen Active Medications Generic Name Dose Route Start Last Admin Trade Name Freq PRN Reason Stop Dose Admin Heparin Sodium (Porcine) 5,000 unit 05/15/17 22:00 Heparin - SQ BID LOU Metronidazole 500 mg in 100 mls @ 100 mls/hr 05/15/17 15:00 05/16/17 02:45 Flagyl 500mg Premixed Ivpb - IVPB 100 mls/hr Q8H-IV LOU Administration Piperacillin Sod/Tazobactam 100 mls @ 200 mls/hr 05/15/17 15:15 05/16/17 02: 05 Sod 4.5 gm/ Dextrose IVPB 200 mls/hr Q8H-IV LOU Administration Sodium Chloride 1,000 mls @ 125 mls/hr 05/15/17 19:30 Normal Saline - IV ASDIR LOU Morphine Sulfate 4 mg 05/15/17 19:20 Morphine Sulfate IVPUSH Q4H PRN PAIN LEVEL 7-10 Oxycodone HCl 10 mg 05/15/17 19:04 Roxicodone - PO 05/16/17 19:03 Q4H PRN PAIN LEVEL 4 - 6 No micro Abdominal/Pelvis CT with contrast 05/15: Findings strongly suspicious for acute appendicitis without abscess formation. ASSESSMENT/PLAN: Patient is a 32 year old male presented to the ED with the chief complaint of Right lower abdominal pain x 1 day was found to have Acute appendicitis on CT abd/Pelvis. # Acute Appendicitis - s/p lap appy 05/15; no overnight events - gen surg following - PO hydration - minimize narcotics, pain control with PO roxicodone - IV Reglan 10mg Q8H PRN for nausea/vomiting - ISS - encourage ambulation - zosyn, flagyl day 2; plan for d/c on levaquin/flagyl tomorrow # Polysubstance abuse - Utox + Cocaine, opiates; hx of PSA - investment counselor on cessation -monitor for withdrawal signs # Glycousria- A1c 5.1 - no further BG monitoring with finger sticks # FEN -PO hydration - daily lytes - Regular diet # Prophylaxis -SCDs For GI: Not indicated # Code Status: Full Code #dispo - d/c home tomorrow Plan discussed with attending, Dr. Gildardo Mora, PGY1 Visit type - Emergency Visit Emergency Visit: Yes ED Registration Date: 05/15/17 Care time: The patient presented to the Emergency Department on the above date and was hospitalized for further evaluation of their emergent condition. - New Patient This patient is new to me today: No - Critical Care Critical Care patient: No
[2017-05-16] MEDS ORDERED: oxyCODONE HCL 5 MG TABLET PO PRN (07:38)
[2017-05-16] MEDS ORDERED: morphine SULFATE 4 MG/ML VIAL IVPUSH PRN (07:39)
[2017-05-16 07:42] LABS: HEMATOCRIT 40.2 % (35.4-49); HEMOGLOBIN 14.1 GM/dL (11.7-16.9); MCH 32.7 pg (25.7-33.7); MCHC 35.2 g/dl (32.0-35.9); MEAN CELL VOLUME 92.7 fl (80-96); MEAN PLT VOLUME 8.2 fl (7.5-11.1); PLATELET COUNT 182 K/MM3 (134-434); RBC 4.33 M/mm3 (4.00-5.60); RDW 12.6 % (11.9-15.9); WHITE BLOOD COUNT 12.8 K/mm3 (4.0-10.0)
[2017-05-16 07:47] LABS: ANION GAP 9 (8-16); BLOOD UREA NITROGEN 10 mg/dL (7-18); CALCIUM 8.5 mg/dL (8.5-10.1); CHLORIDE 106 mmol/L (98-107); CO2 29 mmol/L (21-32); CREATININE 1.3 mg/dL (0.7-1.3); GLUCOSE,RANDOM 111 mg/dL (74-106); POTASSIUM 4.5 mmol/L (3.5-5.1); SODIUM 144 mmol/L (136-145)
[2017-05-16] MEDS: SODIUM CHLORIDE 1,000 ML IV SCH (09:18)
[2017-05-16] MEDS: HEPARIN NA (PORCINE) 5,000 UNITS/ML 1ML VIAL SQ SCH ×2 (09:19→22:35)
--- NOTE | 2017-05-16 10:11 | PN ---
Progress Note (short form) - Note Progress Note: POD #1 Alert. Resting in position of comfort. States he feels much better compared to when he was admitted. C/o mild incisional tenderness. Adequate pain control via prn meds. He hasn't been oob yet. He is voiding spontaneously. Using incentive spirometer as directed. He states he ate a couple spoonfuls of oatmeal this morning and tolerated. Denies n/v/f/c. Last Vital Signs Temp Pulse Resp BP Pulse Ox 97.9 F 69 20 103/62 100 05/16/17 06:00 05/16/17 06:00 05/16/17 06:00 05/16/17 06:00 05/15/17 23:45 TREND 05/15/17 05/16/17 08:45 07:05 WBC 15.1 H 12.8 H PE Gen: alert. nad Pul: cta bilat anteriorly Cor: rrr Abd: softly distended (due to gas used for insufflation during surgery). All surgical ports c/d/i. No hematoma. LE: soft. nt bilat <Elder Cavazos P - Last Filed: 05/16/17 10:11> - Note Progress Note: Agree POD 1 Pain controlled Vital Signs Period Temp Pulse Resp BP Sys/Ng Pulse Ox Last 24 Hr 97.9 F-100.0 F 69-117 12-24 103-141/53-79 92-100 Abd soft CBC, BMP 05/16/17 07:05 05/16/17 07:05 Regular diet Antibiotics Discharge planning <Avery Clayton - Last Filed: 05/16/17 14:38> Problem List - Problems (1) S/P laparoscopic appendectomy Assessment/Plan: POD #1 s/p lap appy. Intra-op findings identified area of focal perforation. Patient is non-toxic appearing. Doing well. Tolerating PO diet. Adequate pain control. Patient states he wants to go home. OOB and ambulate IV abx Tylenol for fever > 100.3F Pain management PRN Possible DC home later today (after dinner) Above plan discussed with Dr. Claytno and agrees. <Elder Cavazos P - Last Filed: 05/16/17 10:11> - Problems (1) Appendicitis Code(s): K37 - UNSPECIFIED APPENDICITIS Qualifiers: Appendicitis type: acute appendicitis Acute appendicitis type: with localized peritonitis Qualified Code(s): K35.3 - Acute appendicitis with localized peritonitis <Avery Clayton - Last Filed: 05/16/17 14:38>
[2017-05-16] MEDS: morphine SULFATE 4 MG/ML VIAL IVPUSH PRN ×3 (11:18→22:41)
--- NOTE | 2017-05-16 16:43 | PN ---
Teaching Attending Note Name of Resident: Shawn Mora ATTENDING PHYSICIAN STATEMENT I saw and evaluated the patient. I reviewed the resident's note and discussed the case with the resident. I agree with the resident's findings and plan as documented with exceptions below. SUBJECTIVE: Patient seen and examined. abdominal pain but better, passing gas, tolerating diet well, no chest pain, palpitations, dyspnea or dizziness. OBJECTIVE: Vital Signs Period Temp Pulse Resp BP Sys/Ng Pulse Ox Last 24 Hr 97.9 F-98.8 F 69-100 12-20 103-127/57-79 92-100 Intake & Output 05/13/17 05/14/17 05/15/17 05/16/17 23:59 23:59 23:59 23:59 Intake Total 3150 1550 Output Total 805 Balance 2345 1550 Weight 185 lb 190 lb General: lying in bed in no acute distress Abdomen: soft, distended, positive bowel sounds, RLQ mild tenderness, minimal LLQ tenderness, no voluntary or involuntary guarding or rigidity Home Medication List Medication Instructions Recorded Confirmed Type Multivitamin [Multiple Vitamins] 1 each PO DAILY 05/15/17 05/15/17 History [place]-3/Dha/Epa/Fish Oil [[place] 3 1 each PO DAILY 05/15/17 05/15/17 History 500 Softgel] Active Medications Generic Name Dose Route Start Last Admin Trade Name Freq PRN Reason Stop Dose Admin Heparin Sodium (Porcine) 5,000 unit 05/15/17 22:00 05/16/17 09:19 Heparin - SQ 5,000 unit BID LOU Administration Metronidazole 500 mg in 100 mls @ 100 mls/hr 05/15/17 15:00 05/16/17 10:15 Flagyl 500mg Premixed Ivpb - IVPB 100 mls/hr Q8H-IV LOU Administration Piperacillin Sod/Tazobactam 100 mls @ 200 mls/hr 05/15/17 15:15 05/16/17 09: 18 Sod 4.5 gm/ Dextrose IVPB 200 mls/hr Q8H-IV LOU Administration Morphine Sulfate 1 mg 05/16/17 07:40 05/16/17 15:22 Morphine Sulfate IVPUSH 1 mg Q4H PRN Administration PAIN LEVEL 7-10 Oxycodone HCl 5 mg 05/16/17 07:38 Roxicodone - PO 05/16/17 19:03 Q4H PRN PAIN LEVEL 4 - 6 Laboratory Results - last 24 hr 05/15/17 05/16/17 05/16/17 08:45 03:56 07:05 WBC 12.8 H RBC 4.33 Hgb 14.1 Hct 40.2 MCV 92.7 MCH 32.7 MCHC 35.2 RDW 12.6 Plt Count 182 D MPV 8.2 Sodium Potassium Chloride Carbon Dioxide Anion Gap BUN Creatinine POC Glucometer 155 Random Glucose Hemoglobin A1c % 5.1 Calcium 05/16/17 07:05 WBC RBC Hgb Hct MCV MCH MCHC RDW Plt Count MPV Sodium 144 Potassium 4.5 D Chloride 106 Carbon Dioxide 29 Anion Gap 9 BUN 10 Creatinine 1.3 POC Glucometer Random Glucose 111 H Hemoglobin A1c % Calcium 8.5 ASSESSMENT AND PLAN: 32 yom with polysubstance abuse, hypertriglyceridemia here with Acute appendicitis -Acute appendicitis -Polysubstance abuse -Glucosuria Plan: for Lap Appy4/10, Doing well, tolerating diet. Zosyn/flagyl inhouse. Plan for d/c tomorrow on levaquin/flagyl if doing well as discussed with Dr. Clayton. Off IVF. pain control, minimize narcotics. A1c noted, no concerns. Incentive spirometry and encourage ambulation. GIPPX with protonix DVTPPx per surgery plan for d/c home tomorrow if eating well and no concerns. Plan discussed with patient in detail, all questions answered.
[2017-05-16] MEDS ORDERED: ACETAMINOPHEN 325 MG TABLET (FP) PO ONE (18:30)
[2017-05-16] MEDS ORDERED: METOCLOPRAMIDE HCL INJECTION 10 MG/2 ML VIAL IVPUSH PRN (18:36)
[2017-05-16] MEDS ORDERED: morphine SULFATE 4 MG/ML VIAL IVPUSH ONE (23:50)
[2017-05-17] MEDS ORDERED: PIPERACILLIN/TAZOBACTAM 4.5 GM VIAL IVPB ONE ×2 (00:39→09:24)
[2017-05-17] MEDS ORDERED: DEXTROSE 5%-WATER 100 ML IVPB ONE ×2 (00:40→09:25)
[2017-05-17] MEDS: PIPERACILLIN/TAZOB 4.5 GM 4.5 GM in DEXTROSE 5%-WATER 100 ML IVPB SCH ×2 (02:02→11:16)
--- NOTE | 2017-05-17 06:05 | PN ---
Physical Exam: SUBJECTIVE: Patient seen and examined - BM overnight; desatting to 94% on 2L NC; no other overnight events; VSS; complaining of mild LLQ/RLQ pain with ambulation and engagement of ab muscles; denies f/c/n/v/d, cp, back pain, cough sob, dizziness; tolerating feeds; for d/ c today OBJECTIVE: Vital Signs Intake & Output 05/14/17 05/15/17 05/16/17 05/17/17 23:59 23:59 23:59 23:59 Intake Total 3150 2575 200 Output Total 805 Balance 2345 2575 200 Weight 83.915 kg 86.183 kg Period Temp Pulse Resp BP Sys/Ng Pulse Ox Last 24 Hr 97.8 F-99.4 F 79-98 17-18 112-118/64-73 94-94 GENERAL: Young man, NAD, A&Ox3 HEAD: Normal with no signs of trauma. EYES: PERRL, extraocular movements intact, sclera anicteric, conjunctiva clear. No ptosis. ENT: Ears normal, nares patent, oropharynx clear without exudates, MMM NECK: Trachea midline, full range of motion, supple. LUNGS: Breath sounds equal, clear to auscultation bilaterally, no wheezes, no crackles, no accessory muscle use. HEART: Regular rate and rhythm, S1, S2 without murmur, rub or gallop. ABDOMEN: Still mildly TTP in RLQ/LLQ. Incisions c/d/i. Soft, nondistended, normoactive bowel sounds, voluntary guarding, no rebound, no hepatosplenomegaly, no masses. EXTREMITIES: 2+ pulses, warm, well-perfused, no edema. NEUROLOGICAL: Cranial nerves II through XII grossly intact. Normal speech, gait not observed. PSYCH: Normal mood, normal affect. SKIN: Warm, dry, normal turgor, no rashes or lesions noted Laboratory Results - last 24 hr CBC, BMP 05/16/17 07:05 05/16/17 07:05 05/16/17 05/16/17 07:05 07:05 WBC 12.8 H RBC 4.33 Hgb 14.1 Hct 40.2 MCV 92.7 MCH 32.7 MCHC 35.2 RDW 12.6 Plt Count 182 D MPV 8.2 Sodium 144 Potassium 4.5 D Chloride 106 Carbon Dioxide 29 Anion Gap 9 BUN 10 Creatinine 1.3 Random Glucose 111 H Calcium 8.5 Active Medications Generic Name Dose Route Start Last Admin Trade Name Lizbeth PRN Reason Stop Dose Admin Heparin Sodium (Porcine) 5,000 unit 05/15/17 22:00 05/16/17 22:35 Heparin - SQ 5,000 unit BID LOU Administration Metronidazole 500 mg in 100 mls @ 100 mls/hr 05/15/17 15:00 05/17/17 02:45 Flagyl 500mg Premixed Ivpb - IVPB 100 mls/hr Q8H-IV LOU Administration Piperacillin Sod/Tazobactam 100 mls @ 200 mls/hr 05/15/17 15:15 05/17/17 02: 02 Sod 4.5 gm/ Dextrose IVPB 200 mls/hr Q8H-IV LOU Administration Metoclopramide HCl 10 mg 05/16/17 18:36 Reglan Injection - IVPUSH Q6H PRN NAUSEA AND/OR VOMITING Morphine Sulfate 1 mg 05/16/17 07:40 05/16/17 22:41 Morphine Sulfate IVPUSH 1 mg Q4H PRN Administration PAIN LEVEL 7-10 No micro Abdominal/Pelvis CT with contrast 05/15: Findings strongly suspicious for acute appendicitis without abscess formation. ASSESSMENT/PLAN: Patient is a 32 year old male presented to the ED with the chief complaint of Right lower abdominal pain x 1 day was found to have Acute appendicitis on CT abd/Pelvis. # Acute Appendicitis - s/p lap appy 05/15; no overnight events - gen surg following - PO hydration - minimize narcotics, pain control with PO roxicodone - IV Reglan 10mg Q8H PRN for nausea/vomiting - ISS - encourage ambulation - zosyn, flagyl day 2; plan for d/c on levaquin/flagyl tomorrow # Polysubstance abuse - Utox + Cocaine, opiates; hx of PSA - litigation counsel on cessation -monitor for withdrawal signs # Glycousria- A1c 5.1 - no further BG monitoring with finger sticks # FEN -PO hydration - daily lytes - Regular diet # Prophylaxis -SCDs For GI: Not indicated # Code Status: Full Code #dispo - d/c home tomorrow Plan discussed with attending, Dr. Gildardo Mora, PGY1
[2017-05-17] MEDS: morphine SULFATE 4 MG/ML VIAL IVPUSH PRN ×2 (07:02→11:20)
--- NOTE | 2017-05-17 08:34 | PN ---
Teaching Attending Note Name of Resident: Shawn Mora ATTENDING PHYSICIAN STATEMENT I saw and evaluated the patient. I reviewed the resident's note and discussed the case with the resident. I agree with the resident's findings and plan as documented with exceptions below. SUBJECTIVE: Patient seen and examined. pain better, no dyspnea, cough or fevers/chills. Had a BM yesterday, tolerating diet well. OBJECTIVE: Vital Signs Period Temp Pulse Resp BP Sys/Ng Pulse Ox Last 24 Hr 97.8 F-99.4 F 79-98 17-18 112-134/64-83 94-94 Intake & Output 05/14/17 05/15/17 05/16/17 05/17/17 23:59 23:59 23:59 23:59 Intake Total 3150 2575 200 Output Total 805 Balance 2345 2575 200 Weight 185 lb 190 lb General lying in bed in no acute distress Abdomen soft, tenderness RLQ, no voluntary or involuntary guarding or rigidity, improved distension, positive bowel sounds Chest CTAB, no rales or wheezing Extremities no edema Home Medication List Medication Instructions Recorded Confirmed Type Multivitamin [Multiple Vitamins] 1 each PO DAILY 05/15/17 05/15/17 History [place]-3/Dha/Epa/Fish Oil [[place] 3 1 each PO DAILY 05/15/17 05/15/17 History 500 Softgel] Active Medications Generic Name Dose Route Start Last Admin Trade Name Freq PRN Reason Stop Dose Admin Heparin Sodium (Porcine) 5,000 unit 05/15/17 22:00 05/16/17 22:35 Heparin - SQ 5,000 unit BID LOU Administration Metronidazole 500 mg in 100 mls @ 100 mls/hr 05/15/17 15:00 05/17/17 02:45 Flagyl 500mg Premixed Ivpb - IVPB 100 mls/hr Q8H-IV LOU Administration Piperacillin Sod/Tazobactam 100 mls @ 200 mls/hr 05/15/17 15:15 05/17/17 02: 02 Sod 4.5 gm/ Dextrose IVPB 200 mls/hr Q8H-IV OLU Administration Metoclopramide HCl 10 mg 05/16/17 18:36 Reglan Injection - IVPUSH Q6H PRN NAUSEA AND/OR VOMITING Morphine Sulfate 1 mg 05/16/17 07:40 05/17/17 07:02 Morphine Sulfate IVPUSH 1 mg Q4H PRN Administration PAIN LEVEL 7-10 ASSESSMENT AND PLAN: 32 yom with polysubstance abuse, hypertriglyceridemia here with Acute appendicitis -Acute appendicitis -Polysubstance abuse -Glucosuria Plan: for Lap Appy4/10, Doing well, tolerating diet. Zosyn/flagyl day 3, plan for levaquin/flagyl outpatient x 10 days per surgery. A1c noted, no concerns. Oxygenation noted at bedside, 94% with deep breaths, no dyspnea concerns. Has been splinting from the pain which is improved. patient aggressively counseled on incentive spirometry, deep breathing exercises and ambulation. He relays understanding of the same. d/c home today with outpatient surgery follow up. Plan discussed with patient in detail, all questions answered.
--- NOTE | 2017-05-17 08:55 | PN ---
Progress Note (short form) - Note Progress Note: No new events Pain controlled On diet Vital Signs Period Temp Pulse Resp BP Sys/Ng Pulse Ox Last 24 Hr 97.8 F-99.4 F 79-98 17-18 112-134/64-83 94-94 Abd soft CBC, BMP 05/16/17 07:05 05/16/17 07:05 Discharge home on PO antibiotics as prescribed Problem List - Problems (1) Appendicitis Code(s): K37 - UNSPECIFIED APPENDICITIS Qualifiers: Appendicitis type: acute appendicitis Acute appendicitis type: with localized peritonitis Qualified Code(s): K35.3 - Acute appendicitis with localized peritonitis
[2017-05-17] MEDS: HEPARIN NA (PORCINE) 5,000 UNITS/ML 1ML VIAL SQ SCH (09:28)
[2017-05-17 14:25] VITALS: BP 133/70; PULSE 82; TEMP 98.4
--- NOTE | 2017-05-17 16:34 | DS ---
Physical Exam: SUBJECTIVE: Patient seen and examined - BM overnight; desatting to 94% on 2L NC; no other overnight events; VSS; complaining of mild LLQ/RLQ pain with ambulation and engagement of ab muscles; denies f/c/n/v/d, cp, back pain, cough sob, dizziness; tolerating feeds; for d/ c today OBJECTIVE: Vital Signs Intake & Output 05/14/17 05/15/17 05/16/17 05/17/17 23:59 23:59 23:59 23:59 Intake Total 3150 2575 300 Output Total 805 600 Balance 2345 2575 -300 Weight 83.915 kg 86.183 kg Period Temp Pulse Resp BP Sys/Ng Pulse Ox Last 24 Hr 98.1 F-99.4 F 82-98 17-18 113-140/64-83 90-95 PHYSICAL EXAM GENERAL: Young man, NAD, A&Ox3 HEAD: Normal with no signs of trauma. EYES: PERRL, extraocular movements intact, sclera anicteric, conjunctiva clear. No ptosis. ENT: Ears normal, nares patent, oropharynx clear without exudates, MMM NECK: Trachea midline, full range of motion, supple. LUNGS: Breath sounds equal, clear to auscultation bilaterally, no wheezes, no crackles, no accessory muscle use. HEART: Regular rate and rhythm, S1, S2 without murmur, rub or gallop. ABDOMEN: Still mildly TTP in RLQ/LLQ. Incisions c/d/i. Soft, nondistended, normoactive bowel sounds, voluntary guarding, no rebound, no hepatosplenomegaly, no masses. EXTREMITIES: 2+ pulses, warm, well-perfused, no edema. NEUROLOGICAL: Cranial nerves II through XII grossly intact. Normal speech, gait not observed. PSYCH: Normal mood, normal affect. SKIN: Warm, dry, normal turgor, no rashes or lesions noted LABS CBC, BMP 05/16/17 07:05 05/16/17 07:05 Laboratory Last Values WBC 12.8 K/mm3 (4.0-10.0) H 05/16/17 07:05 RBC 4.33 M/mm3 (4.00-5.60) 05/16/17 07:05 Hgb 14.1 GM/dL (11.7-16.9) 05/16/17 07:05 Hct 40.2 % (35.4-49) 05/16/17 07:05 MCV 92.7 fl (80-96) 05/16/17 07:05 MCH 32.7 pg (25.7-33.7) 05/16/17 07:05 MCHC 35.2 g/dl (32.0-35.9) 05/16/17 07:05 RDW 12.6 % (11.9-15.9) 05/16/17 07:05 Plt Count 182 K/MM3 (134-434) D 05/16/17 07:05 MPV 8.2 fl (7.5-11.1) 05/16/17 07:05 Neutrophils % 87.8 % (42.8-82.8) H 05/14/17 23:50 Lymphocytes % 6.8 % (8-40) L 05/14/17 23:50 Monocytes % 5.0 % (3.8-10.2) 05/14/17 23:50 Eosinophils % 0.2 % (0-4.5) 05/14/17 23:50 Basophils % 0.2 % (0-2.0) 05/14/17 23:50 PT with INR 11.80 SEC (9.98-11.88) 05/15/17 08:45 INR 1.04 (0.82-1.09) 05/15/17 08:45 PTT (Actin FS) 30.4 SECONDS (26.9-34.4) 05/15/17 08:45 Sodium 144 mmol/L (136-145) 05/16/17 07:05 Potassium 4.5 mmol/L (3.5-5.1) D 05/16/17 07:05 Chloride 106 mmol/L (98-107) 05/16/17 07:05 Carbon Dioxide 29 mmol/L (21-32) 05/16/17 07:05 Anion Gap 9 (8-16) 05/16/17 07:05 BUN 10 mg/dL (7-18) 05/16/17 07:05 Creatinine 1.3 mg/dL (0.7-1.3) 05/16/17 07:05 Creat Clearance w eGFR > 60 (>60) 05/14/17 23:50 POC Glucometer 155 UNITS (80-120) 05/16/17 03:56 Random Glucose 111 mg/dL (74-106) H 05/16/17 07:05 Hemoglobin A1c % 5.1 % (4.8-6.0) 05/15/17 08:45 Calcium 8.5 mg/dL (8.5-10.1) 05/16/17 07:05 Total Bilirubin 0.8 mg/dL (0.2-1.0) 05/14/17 23:50 AST 33 U/L (15-37) 05/14/17 23:50 ALT 47 U/L (12-78) 05/14/17 23:50 Alkaline Phosphatase 126 U/L (45-117) H 05/14/17 23:50 Total Protein 8.5 g/dl (6.4-8.2) H 05/14/17 23:50 Albumin 4.9 g/dl (3.4-5.0) 05/14/17 23:50 Urine Color Ltyellow 05/15/17 04:30 Urine Appearance Clear 05/15/17 04:30 Urine pH 7.0 (5.0-8.0) 05/15/17 04:30 Ur Specific [place] > 1.060 (1.001-1.035) H 05/15/17 04:30 Urine Protein Negative (NEGATIVE) 05/15/17 04:30 Urine Glucose (UA) 1+ (NEGATIVE) H 05/15/17 04:30 Urine Ketones 2+ (NEGATIVE) H 05/15/17 04:30 Urine Blood Negative (NEGATIVE) 05/15/17 04:30 Urine Nitrite Negative (NEGATIVE) 05/15/17 04:30 Urine Bilirubin Negative (<2.0 mg/dL) 05/15/17 04:30 Urine Urobilinogen Negative mg/dL (0.2-1.0) 05/15/17 04:30 Ur Leukocyte Esterase Negative (NEGATIVE) 05/15/17 04:30 Opiates Screen Positive ng/ml (VGXXIV=725) 05/15/17 08:45 Methadone Screen Negative ng/ml (LLHAXQ=433) 05/15/17 08:45 Barbiturate Screen Negative ng/ml (HIXVJS=559) 05/15/17 08:45 Phencyclidine Screen Negative ng/ml (CUTOFF=25) 05/15/17 08:45 Ur Amphetamines Screen Negative ng/ml (DJLAIN=491) 05/15/17 08:45 MDMA (Ecstasy) Screen Negative ng/ml (HUMPWE=409) 05/15/17 08:45 Benzodiazepines Screen Negative ng/ml (WNLEPD=261) 05/15/17 08:45 Cocaine Screen Positive ng/ml (OETAVE=665) 05/15/17 08:45 U Marijuana (THC) Screen Positive ng/ml (CUTOFF=50) 05/15/17 08:45 Blood Type O POSITIVE 05/15/17 12:10 Antibody Screen Negative 05/15/17 08:45 No micro Abdominal/Pelvis CT with contrast 05/15: Findings strongly suspicious for acute appendicitis without abscess formation. Consults: General Surgery - Dr. Clayton ID - Dr. Smiley HOSPITAL COURSE: prehospital course: Patient is a 32 year old male presented to the ED with the chief complaint of Right lower abdominal pain x 1 day. As per the patient, he was apparently well until 2 pm yesterday then he suddenly developed RLQ abdominal pain, progressively getting worse to 10/10, non radiating, sharp in quality, associated with chills, nausea and several episodes of vomiting. Vomitus mainly contained food particles, non bloody, non projectile. Denies fever, rigors chest pain, sob, cough, palpitation, headache, LOC, trauma. Bladder/Bowel habit normal. Sleep/Appetite normal prior to illness. Was seen by Dr. Clayton in the ED, plan is to take the patient in the OR today ( time unknown) for Lap Appendectomy. ER course was notable for: (1) Afebrile, hemodynamically stable, leukocytosis of 12.7 (2) CT abdomen/Pelvis (3) IV Ceftriaxone, IV Metron, Reglan, Zofran, Morphine 12 mg total. Hospital course: CT abdomen/pelvis notable for acute appendicitis. General surgery consulted, Dr. Clayton. Pt taken to OR on 05/15. Perioperative course notable for microperforation of inflammed appendix on presentation. Successful resection of appendix. No complications noted, minimal blood loss. Pt started on IV zosyn for abx ppx. POD1, pt only complaining of mild surgical site pain, tolerating PO feeds. Good pain control, VSS. POD2, pt w/ + BM, tolerating feeds, VSS. Seen by respiratory therapy for pre/post eval, no desat with ambulation. Pt counseled on using incentive spirometer. Pt with sats in 90-94% on RA, however no indication for home o2. Likely secondary to atelectasis from splinting. Pt discharged on PO levaquin/flagyl with outpt f/u in two weeks with Dr. Clayton. Date of Admission:05/15/17 Date of Discharge: 05/17/17 Pt is stable and medically cleared for discharge by the primary surgical team, with f/u as outpt in two weeks. Minutes to complete discharge: 35 Discharge Summary Reason For Visit: APPENDICITIS Condition: Stable - Instructions Diet, Activity, Other Instructions: [address] [facility] Avery Clayton M.D. [address] [place] [address],[address] Floor [facility] [address] Weight Loss & Surgery [facility] Robotic, Bariatric and General Surgery Postoperative Instructions for General Surgery Activity: Resume normal everyday activity as tolerated. You may walk and climb stairs without any limitation. We encourage you to walk as often as you can Do not lift anything more than 10 pounds for 8 weeks. At that time, you can return to full activity, including the gym, without limitation. Do not drive a motor vehicle or operate heavy machinery while taking prescribes narcotic pain medication. Wound Care: If you have a bandage in place, leave it on for 3 days. At that time you may remove the outer bandage. If there are strips of tape on the skin after removing the outer bandage, leave them in place. They will fall off by themselves. Do not remove them. If there is clear glue on the skin after removing the outer bandage, leave it in place. Do not pick at it or peel it off. You may shower after taking the outer bandage off, 3 days after your surgery. For male groin hernia patients: you may notice a black and blue discoloration of your testicles. This is normal and should resolve over the next week or two. If this persists, please call the office. Diet: You may continue your regular diet at home. If you have a history of high blood pressure, you should be on a low sodium diet. If you have a history of Diabetes Mellitus, you should be on a diabetic/sugar controlled diet. If you had your gallbladder removed, you should be on a low cholesterol/low fat diet. Medications/Pain Management: You may resume previous medications unless told otherwise. If the narcotic medication is not needed for pain control, you may take Tylenol. Please note that your pain medication Percocet prescribed by surgeon has tylenol (acetaminophen) in it. If you take additional tylenol or acetaminophen, ensure that total acetaminophen dose not exceed 4g in 24 hours. Vomiting/Nausea: This may occur if you eat too fast, don't chew, or eat too much. Go back to fluids. If the vomiting or nausea persists, call the office. Constipation/Diarrhea: You may experience a change in bowel habits. Many things affect this, including taking pain medication. You may take senna or colace over the counter to help with the constipation. If either persist, call the office. Follow up: Call the office at [phone] for an appointment 2 weeks after your surgical procedure. Aggressive incentive spirometry every 1 hour when awake and deep breathing exercises. Call 911 or come to ED if any new belly pain, nausea, vomiting, fevers, cough, trouble breathing, leg swelling or new concerns. Referrals: Avery Clayton MD [Staff Physician] - 2 Weeks Disposition: HOME - Home Medications Comprehensive Discharge Medication List: Ambulatory Orders Docusate Sodium [Colace -] 100 mg PO TID #90 capsule 05/15/17 Multivitamin [Multiple Vitamins] 1 each PO DAILY 05/15/17 [place]-3/Dha/Epa/Fish Oil [[place] 3 500 Softgel] 1 each PO DAILY 05/15/17 Oxycodone HCl/Acetaminophen [Percocet 5-325 mg Tablet] 1 - 2 tab PO Q6H #28 tab MDD 4 05/15/17 levoFLOXacin [Levaquin -] 500 mg PO DAILY #10 tablet 05/16/17 metroNIDAZOLE [Flagyl -] 500 mg PO TID #30 tablet 05/16/17 This patient is new to me today: No Emergency Visit: Yes ED Registration Date: 05/15/17 Care time: The patient presented to the Emergency Department on the above date and was hospitalized for further evaluation of their emergent condition. Critical Care patient: No - Discharge Referral Referred to [facility] Med P.C.: No
--- NOTE | 2017-05-18 09:37 | PATH ---
Surgical Pathology Report Patient Name: HORTENCIA PATTERSON [facility]. Rec. #: [id number] /Age/Gender: 1985 (Age: 32) / M Account: [id number] Location: [address] [place] [address]/[facility] Taken: 05/15/2017 Received: 05/16/2017 Reported: 05/18/2017 Physicians: Avery Clayton M.D. Specimen(s) Received APPENDIX Clinical History Appendicitis Final Diagnosis APPENDIX, APPENDECTOMY: ACUTE APPENDICITIS WITH PERFORATION INTO PERIAPPENDICEAL FAT, AND PERIAPPENDICITIS. Electronically Signed Rikki Parrish M.D. Gross Description Received in formalin labelled "appendix" is a 9.4 cm long by up to 0.8 cm in diameter appendix with attached periappendiceal fat. The appendix has a cardona and brown serosa, a 0.2-0.3 cm thick wall, and brown mucosa. No fecalith or point of rupture is identified. Manufacturer Agent sections are submitted one cassette. [facility]/05/16/2017 [facility]/05/16/2017
== END 2017-05-17 14:17 | disposition home or self-care (01) | DRG 340 ==
LOC: JER 22:30 → JERBED 05-15 06:32 → J5S 05-15 23:47
PROVIDERS: ADMIT Internal Medicine; ATTEND Hospitalist
PROC: 0DTJ4ZZ Resection of Appendix, Percutaneous Endoscopic Approach (ICD-10-PCS; principal; 2017-05-15 11:00)
DX: K35.3 Acute appendicitis with localized peritonitis (principal); F14.10 Cocaine abuse, uncomplicated; F12.10 Cannabis abuse, uncomplicated; E78.1 Pure hyperglyceridemia; F11.10 Opioid abuse, uncomplicated; Z72.0 Tobacco use
CPT/HCPCS: 36415; 74177-TC; 80048; 80053; 80307; 81003; 82962; 83036; 85025; 85027; 85610; 85730; 86850; 86900; 86901; 93005; 93010; 94760; 94761; 99285-25; J0131; J1644; J7030